=== PATIENT | male | born 1955 | race Caucasian/White ===

== ENCOUNTER → 2022-08-03 | Outpatient (REF) | payer MEDICARE, BC | LOC: M SFHCDERM 17:52 | PROVIDERS: ATTEND Physician Assistant | DX: C43.59 Malignant melanoma of other part of trunk (principal) ==

== ENCOUNTER → 2023-03-29 | Outpatient (REF) | payer MEDICARE, BC | LOC: M SFHCDERM 17:33 | PROVIDERS: ATTEND Physician Assistant | DX: C76.41 Malignant neoplasm of right upper limb (principal) ==

== ENCOUNTER → 2023-08-31 | Outpatient (CLI) | payer MEDICARE, BC | LOC: M CARPUL 09:18 | PROVIDERS: ATTEND Student in an Organized Health Care Education/Training Program | DX: R06.09 Other forms of dyspnea (principal) ==